=== PATIENT | male | born 1990 | race Caucasian/White ===

== ENCOUNTER 2017-07-17 08:02 | Emergency (ER) | payer MEDICAID, OTHER ==
[~2017-07-17] VITALS: Ht 193 cm; Wt 49.9 kg
[2017-07-17 08:11] VITALS: BP 176/87
== END 2017-07-17 08:55 | disposition home or self-care (01) ==
LOC: ER 08:02
DX: F32.9 Major depressive disorder, single episode, unspecified (principal); Z76.0 Encounter for issue of repeat prescription